=== PATIENT | female | born 1955 | race Caucasian/White ===

== ENCOUNTER → 2020-06-04 | Outpatient (CLI) | payer MEDICARE, MEDICAID ==
[~2020-06-04] MED LIST: AMIT25TA9 PO; ASP81CT; ASP81TEC; ASP81TEC PO; AZTH250C PO; BUTA-234 PO; CHOL200018 PO; CYCL5TAB PO; DPH25C PO; ERGO400C PO; ESTR1PAT28 TD; ESTR42.52 VG; FAMO20TA5 PO; FLC100T1 PO; HDR2T PO; HYDR1TAB PO; IBP600T1 PO; LOVA10TA PO; MECL12.579 PO; METR500T PO; NAPR-243 PO; NAPROXEN; NITR100C3 PO; OMG1KC; PERCOCET PO; PRD20T PO; PRM25T PO; TETR250C3 PO; TOLT2CAP PO; TOPI100T; TRL300; TRL300 PO
--- NOTE | 2020-06-04 16:00 | Diagnostic Imaging Report ---
INDICATION: Postmenopausal state. COMPARISON: January 20, 2013. FINDINGS: AP Spine L1-L4: [BMD (g/cm2): 1.136] [T-Score: -0.5] [Z-Score: -0.1] [BMD Previous: 1.183] [BMD % Change: -4.0] LT Hip Neck: [BMD (g/cm2): 0.891] [T-Score: -1.1] [Z-Score: -0.3] LT Hip Total: [BMD (g/cm2):0.998] [T-Score:-0.1] [Z-Score: 0.3] [BMD Previous: 0.98] [BMD % Change: 5.3] RT Hip Neck: [BMD (g/cm2):0.888] [T-Score:-1.1] [Z-Score:-0.4] RT Hip Total: [BMD (g/cm2):1.040] [T-score:0.3] [Z-Score:0.6] [BMD Previous:0.918] [BMD % Change:13.3] *Indicates significant change from prior examination based on 95% confidence level. World Health Organization criteria for BMD interpretation classify patients as Normal (T-score at or above -1.0), Osteopenic (T-score between -1.0 and -2.5) or Osteoporotic (T-score at or below -2.5). LIMITATIONS AND MODIFICATION: None. FRACTURE RISK (FRAX SCORE): The ten year probability of (%): Major Osteoporotic Fracture: [12] Hip Fracture: [1.5] IMPRESSION: 1. Osteopenia (Low bone mass). 2. No significant change in bone mineral density since prior examination. 3. See below National Osteoporosis Foundation guidelines on when to potentially initiate pharmacologic therapy. Based on the National Osteoporosis Foundation Guidelines, pharmacologic treatment should be initiated in any of the following, unless clinical conditions suggest otherwise: * Any patient with prior fragility fracture of the hip or vertebrae. A spine fracture indicates 5X risk for subsequent spine fracture and 2X risk for subsequent hip fracture. * Osteoporosis (T-score <-2.5). * Postmenopausal women and men age 50 and older with low bone mass/osteopenia (T-score between -1.0 and -2.5) by DXA and 10-year major osteoporotic fracture greater than 20% or a 10-year probability of hip fracture greater than 3%. These fracture risks are supplied above in the FRAX score, if applicable. * Clinician judgement and/or patient preferences may indicate treatment for people with 10-year fracture probabilities above or below these levels. Dictated by: Dictated on workstation # [id number]
== END ==
LOC: RAD 14:15
PROVIDERS: ATTEND Nurse Practitioner Family
DX: Z13.820 Encounter for screening for osteoporosis (principal); M85.80 Other specified disorders of bone density and structure, unspecified site; Z78.0 Asymptomatic menopausal state
CPT/HCPCS: 77080

== ENCOUNTER → 2020-08-23 | Outpatient (CLI) | payer MEDICARE, MEDICAID ==
--- NOTE | 2020-08-23 16:30 | Diagnostic Imaging Report ---
EXAMINATION: MRI RT LOWER EXT JOINT W/O. TECHNIQUE: Multiplanar, multisequence MR imaging of the right knee was performed without contrast. COMPARISON: None available. INDICATION: Right knee pain. FINDINGS: MENISCI Medial meniscus: Complex tear in the posterior horn of the medial meniscus predominantly involves its free edge, but likely has an unstable margin. There is also some free edge tearing within the body of the medial meniscus. Lateral meniscus: Intact. LIGAMENTS ACL: Intact. PCL: Intact. MCL: Intact. LCL: The lateral collateral ligamentous complex is intact. EXTENSOR MECHANISM The extensor mechanism is intact. CARTILAGE Medial compartment: Full-thickness articular cartilage loss in the posterior nonweightbearing aspect of the medial femoral condyle measuring approximately 1.5 x 0.9 cm. Lateral compartment: The lateral compartment articular cartilage is preserved without high-grade chondromalacia. Patellofemoral compartment: Full-thickness articular cartilage loss at the patellar apex. BONE No fracture, stress fracture or osteonecrosis. SOFT TISSUE Small knee joint effusion. No Farr's cyst. IMPRESSION: 1. Complex tearing involving the body and posterior horn of the medial meniscus likely has unstable free edge margin. 2. There are 2 small regions of full-thickness articular cartilage loss, one in the posterior nonweightbearing aspect of the medial femoral condyle, the other at the patellar apex. Remainder of the articular cartilage throughout the knee is thinned but otherwise intact. Dictated by: Dictated on workstation # [id number]
== END ==
LOC: RAD 14:45
PROVIDERS: ATTEND Nurse Practitioner
DX: S83.231A Complex tear of medial meniscus, current injury, right knee, initial encounter (principal); X58.XXXA Exposure to other specified factors, initial encounter
CPT/HCPCS: 73721

== ENCOUNTER 2021-07-30 05:37 | Outpatient (CLI) | payer MEDICARE, MEDICAID ==
[~2021-07-30] VITALS: Ht 167.6 cm; Wt 116.6 kg
[2021-07-30] MEDS ORDERED: CALC-308 PO (11:20)
[2021-07-30] MEDS ORDERED: ZIPR60CA18 PO (11:20)
[2021-07-30] MEDS ORDERED: PANT40TA52 PO (11:20)
[2021-07-30] MEDS ORDERED: ASPI-999 PO (11:20)
[2021-07-30] MEDS ORDERED: ASCO500C17 PO (11:20)
[2021-07-30] MEDS ORDERED: CHOL10007 PO (11:20)
[2021-07-30] MEDS ORDERED: METF-478 PO (11:20)
== END 2021-07-30 11:33 | disposition home or self-care (01) ==
LOC: PREOP 05:37
PROVIDERS: ATTEND Surgery
DX: Z01.818 Encounter for other preprocedural examination (principal)

== ENCOUNTER → 2021-08-04 | Outpatient (CLI) | payer MEDICARE, MEDICAID ==
[~2021-08-04] MED LIST changes: +ASCO500C17 PO; +ASPI-999 PO; +CALC-308 PO; +CHOL10007 PO; +METF-478 PO; +PANT40TA52 PO; +ZIPR60CA18 PO
== END ==
LOC: CARD 13:30
PROVIDERS: ATTEND Internal Medicine Cardiovascular Disease
DX: R94.31 Abnormal electrocardiogram [ECG] [EKG] (principal)
CPT/HCPCS: 93306

== ENCOUNTER 2021-08-06 10:33 | Day surgery (SDC) | payer MEDICARE, MEDICAID ==
[~2021-08-06] VITALS: Ht 167.6 cm; Wt 116.6 kg
[2021-08-06] MEDS ORDERED: LACTATED RINGERS 1,000 ML IV STA (10:38)
[2021-08-06] MEDS ORDERED: LIDOCAINE JELLY 2% 6 ML SYRINGE MM PRN (10:45)
[2021-08-06 11:03] VITALS: BP 123/75
--- NOTE | 2021-08-06 11:18 | Progress Note-Pre Operative ---
Pre-Operative Progress Note H&P Reviewed The H&P was reviewed, patient examined and no changes noted. Date Seen by Provider: August 06, 2021 Time Seen by Provider: 11:00 Date H&P Reviewed: August 06, 2021 Time H&P Reviewed: 11:00 Pre-Operative Diagnosis: hx colon polyp, FH FAYE PEREZ MD August 06, 2021 11:18
--- NOTE | 2021-08-06 11:19 | Discharge Inst-Surgical ---
D/C Lap Instructions-ANA Follow Up Activity as tolerated High Fiber Diet 25g or more per day Avoid Alcohol, Caffeine, Spicy Bicknell and Acid foods. Drink 64 fluid oz or more of fluids per day. Symptoms to Report: Fever over 101 degree F, Nausea/Vomiting If any problems/questions: Contact your physician or go to Emergency Room FAYE PEREZ MD August 06, 2021 11:19
[2021-08-06] MEDS ORDERED: ONDANSETRON 4 MG (ZOFRAN) ORAL DISSOLVE TAB PO PRN (11:30)
[2021-08-06] MEDS ORDERED: ONDANSETRON 4 MG/2 ML (SDV) Z0FRAN IVP PRN (11:30)
[2021-08-06] MEDS ORDERED: PROPOFOL INJECTION 50 ML IV ONE (12:19)
[2021-08-06 12:50] VITALS: BP 138/63
[2021-08-06 12:55] VITALS: BP 126/68
--- NOTE | 2021-08-06 12:57 | Anesthesia-General Post-Op ---
MAC Patient Condition Mental Status/LOC: Same as Preop Cardiovascular: Satisfactory Nausea/Vomiting: Absent Respiratory: Satisfactory Pain: Controlled Complications: Absent Post Op Complications Complications None Follow Up Care/Instructions Patient Instructions None needed. Anesthesiology Discharge Order Discharge Order Patient is doing well, no complaints, stable vital signs, no apparent adverse anesthesia problems. No complications reported per nursing. BJ NICKERSON CRNA August 06, 2021 12:57
--- NOTE | 2021-08-06 13:03 | Progress Note-Post Operative ---
Post-Operative Progess Note Surgeon (s)/Manufacturing Automation Engineer (s) Surgeon FAYE PEREZ MD Manufacturing Automation Engineer: none Pre-Operative Diagnosis hx colon polyp, FH Post-Operative Diagnosis mild chronic stage 2 ext and int hemorrhoids, mild sigmoid diverticulosis. Procedure & Operative Findings Date of Procedure 08/06/21 Procedure Performed/Findings colonoscopy Anesthesia Type mac Estimated Blood Loss Estimated blood loss (mL): minimal Specimens/Packing Specimens Removed none FAYE PEREZ MD August 06, 2021 13:03
[2021-08-06 13:25] VITALS: BP 127/91
[2021-08-06 14:27] VITALS: BP 127/91
--- NOTE | 2021-08-06 20:07 | OPERATIVE REPORT ---
DATE OF SERVICE: 08/06/2021 ATTENDING CARPENTER: [facility]. PREOPERATIVE DIAGNOSIS: History of colon polyp with first-degree family history of colon cancer. POSTOPERATIVE DIAGNOSES: Mild chronic stage II external and internal hemorrhoids, mild sigmoid diverticulosis. PROCEDURE: Colonoscopy. SURGEON: Faye Perez MD. ANESTHESIA: Monitored anesthesia care. ESTIMATED BLOOD LOSS: Minimal. FINDINGS: Mild chronic stage II external and internal hemorrhoids, mild sigmoid diverticulosis. DISPOSITION: The patient tolerated the procedure well. INDICATIONS: The patient is a 66-year-old female referred over to us for a screening colonoscopy. Her last colonoscopy was approximately 4 years ago where she was found to have polyps, which were found to be benign. She also does have a family history of colon cancer with her mother having the disease. She does not report any red blood per rectum nor any dark tarry stools; however, does have some issues with constipation. She also reports that she did have a history of colitis in the past as well. DESCRIPTION OF PROCEDURE: The patient was brought to the endoscopy suite, laid in the left lateral decubitus position. After adequate IV pain and sedative medications and monitored anesthesia care, a digital rectal examination was performed. Mild chronic stage II external and internal hemorrhoids were identified, which were not actively edematous nor inflamed and no bleeding. Normal sphincter tone was felt and there were no palpable masses. The endoscope was then intubated to the anus and rectum gently insufflated. The endoscope was then advanced through the valves of Lubin of the rectum with no polyps or any neoplasms identified. Through the sigmoid colon, a mild sigmoid diverticulosis was identified. The endoscope was then advanced to the remainder of the descending, transverse and ascending colon to the cecum, which were normal. There were no polyps or any neoplasms identified throughout the colon or rectum. The endoscope was then slowly withdrawn while taking a second look and suctioning of residual air with no additional findings. The patient tolerated the procedure well. We will recommend continued medical management with a high-fiber diet with a fiber supplement, which should equal or exceed 25 grams daily to promote soft stools on a daily basis. If she is asymptomatic, she does not need another colonoscopy for another 5 years. Job ID: [id number] DocumentID: [id number] Dictated Date: 08/06/2021 12:51:29 Manager Education Date: 08/06/2021 20:06:50 Dictated By: FAYE PEREZ MD
== END 2021-08-06 13:45 | disposition home or self-care (01) ==
LOC: ENDO 10:33
PROVIDERS: ATTEND Surgery
DX: Z12.11 Encounter for screening for malignant neoplasm of colon (principal); K57.30 Diverticulosis of large intestine without perforation or abscess without bleeding; K64.1 Second degree hemorrhoids; K64.4 Residual hemorrhoidal skin tags; E11.9 Type 2 diabetes mellitus without complications; E66.9 Obesity, unspecified; Z68.41 Body mass index [BMI] 40.0-44.9, adult; G47.33 Obstructive sleep apnea (adult) (pediatric); Z80.0 Family history of malignant neoplasm of digestive organs; Z86.010 Personal history of colon polyps; Z87.19 Personal history of other diseases of the digestive system; Z79.82 Long term (current) use of aspirin; Z79.84 Long term (current) use of oral hypoglycemic drugs; Z87.891 Personal history of nicotine dependence
CPT/HCPCS: 82947; G0105

== ENCOUNTER → 2021-08-14 | Outpatient (CLI) | payer MEDICARE, MEDICAID ==
[~2021-08-14] MED LIST changes: +CATHETER FLUSH 10 ML SYR IVP PRN; +REGADENOSON 0.4 MG/5 ML SYR (LEXISCAN) IV ONE
[2021-08-14 13:05] VITALS: BP 123/72
--- NOTE | 2021-08-14 15:35 | NUCLEAR STRESS TEST ---
REGADENOSON NUCLEAR STRESS Date of procedure: 08/14/2021. Primary care provider: Deanna Mantilla APRN Admitting physician: Jamie Díaz Jr., MD. INDICATION: Abnormal electrocardiogram. BASELINE ELECTROCARDIOGRAM: Sinus rhythm with low voltage in the precordial leads and poor R wave progression. STRESS TEST PROCEDURE: The patient was administered 0.4 mg of intravenous Regadenoson. The resting heart rate was 69 bpm and the peak heart rate was 108 bpm. The resting blood pressure was 123/72 mmHg and the minimum blood pressure was 123/72 mmHg. This represents a normal heart rate and a blunted blood p ressure response to Regadenoson. The test was stopped due to the protocol. There was no chest discomfort during the test. There were no arrhythmias during the test. There were no significant stress induced electrocardiogram changes. NUCLEAR PROCEDURE: The patient was administered 11 mCi of intravenous technetium 99m Tetrofosmin at rest for the rest images. The patient was subsequently administered 30.6 mCi of intravenous technetium 99m Tetrofosmin at peak stress for the stress images. Following an appropriate wait after each injection, imaging was obtained. The images were subsequently processed and reformatted in the usual views. Gated imaging was obtained. The image quality was adequate with a mild degree of gastrointestinal attenuation artifact. CT attenuation correction was used as a adjunct to standard imaging. Both the corrected and uncorrected images were reviewed for interpretation. NUCLEAR RESULTS: There was a small, mild intensity, reversible apical defect with a small amount of inducible ischemia with a summed stress score of 6 and a summed difference score of 5. There was normal left ventricular chamber size w ith an end-diastolic volume of 23 mL and an end-systolic volume of 10 mL. There was no evidence of transient ischemic dilatation. The TID ratio was 1.04. There was normal wall motion in all segments with a calculated ejection fraction of 55%. IMPRESSION: 1. Normal heart rate and a blunted blood pressure response to regadenoson. 2. There was no chest discomfort, arrhythmias, or electrocardiogram changes during the test. 3. There was a small, mild intensity, reversible apical defect with a small amount of inducible ischemia with a summed stress score of 6 and a summed difference score of 5. 4. There was normal wall motion in all segments with a calculated ejection fraction of 55%. 5. This is an abnormal result although represents an overall low risk for possible future coronary ischemic events. Certain portions of this document may have been dictated utilizing voice recognition technology. Inherent to this technology, typographical and grammatical errors may exist. As much as I am diligent to identify and correct these mistakes, some errors may remain in the document. JAMIE DÍAZ JR, MD August 14, 2021 15:34
== END ==
LOC: CARD 11:07
PROVIDERS: ATTEND Internal Medicine Cardiovascular Disease
DX: R94.31 Abnormal electrocardiogram [ECG] [EKG] (principal)
CPT/HCPCS: 78452; 93017; A9502

== ENCOUNTER 2022-05-11 02:24 | Emergency (ER) | payer MEDICARE, MEDICAID ==
[~2022-05-11] VITALS: Ht 168 cm; Wt 116.6 kg
[~2022-05-11 02:24] MED LIST changes: -CATHETER FLUSH 10 ML SYR IVP PRN; -REGADENOSON 0.4 MG/5 ML SYR (LEXISCAN) IV ONE
[2022-05-11 02:33] VITALS: BP 146/99
--- NOTE | 2022-05-11 02:55 | ED Cough/URI ---
General Chief Complaint: COVID19 Suspect/Confirmed Stated Complaint: COUGH,STUFFY NOSE,POSS COVID Nursing Triage Note: COUGH, RUNNY NOSE X2 DAYS. Source: patient, old records History of Present Illness Date Seen by Provider: May 11, 2022 Time Seen by Provider: 02:30 Initial Comments PT ARRIVES VIA POV FROM HOME PT STATES SHE BEGAN GETTING SICK ON Wednesday05/08/22 WITH: -STUFFY, RUNNY NOSE -NON-PRODUCTIVE COUGH -SLIGHT SHORTNESS OF BREATH NO FEVER NO HEADACHE NO BODY ACHES NO GI SYMPTOMS--HAS BEEN EATING AND DRINKING NORMALLY NO SORE THROAT NO CHEST PAIN SHE HAD COVID IN FEBRUARY AND IS CONCERNED THAT SHE HAS IT AGAIN SHE WAS NOT HOSPITALIZED, AND DID NOT RECEIVE ANY TREATMENT OTHER THAN AN INHALER SHE DID USE HER INHALER ABOUT 6 HOURS AGO, WITH IMPROVEMENT IN SYMPTOMS. SHE HAS NOT TAKEN ANYTHING ELSE AT ALL FOR HER SYMPTOMS SYMPTOMS ARE NO DIFFERENT TONIGHT SHE HAS NOT SOUGHT CARE UNTIL TONIGHT SHE HAS HAD COVID VACCINE X 3, AND FLU VACCINE FOR THIS SEASON NO KNOWN SICK CONTACTS SHE DENIES ANY HISTORY OF RESPIRATORY PROBLEMS OTHERWISE SHE DENIES ASTHMA, EMPHYSEMA, COPD, BRONCHITIS OR PNEUMONIA SHE STATES SHE HAS HTN, DIABETES, "SOME MILD BLOCKAGES" IN HER HEART--NO INTERVENTION, AND BIPOLAR SHE SMOKED 1 PPD X 39 YEARS--QUIT 2013, DENIES ALCOHOL OR DRUG USE. PCP: [facility] Allergies and Home Medications Allergies Coded Allergies: celecoxib (Unverified Allergy, Mild, 07/06/09) metronidazole (Verified Allergy, Mild, 02/21/13) morphine (Unverified Allergy, Mild, 07/06/09) Cephalosporins (Verified Allergy, Unknown, 10/15/06) Macrolide Antibiotics (Verified Allergy, Unknown, 10/15/06) Penicillins (Verified Allergy, Unknown, 10/15/06) Quinolones (Verified Allergy, Unknown, 10/15/06) Sulfa (Sulfonamide Antibiotics) (Verified Allergy, Unknown, 10/15/06) adhesive tape (Verified Allergy, Unknown, 07/30/21) sumatriptan (Verified Allergy, Unknown, 07/30/21) vancomycin (Verified Allergy, Unknown, 10/15/06) amitriptyline (Verified Adverse Reaction, Mild, reported as aphasia, 10/17/11) Patient Home Medication List Home Medication List Reviewed: Yes Albuterol Sulfate (Ventolin Hfa) 90 Mcg Hfa.aer.ad, 2 PUFF IH Q4H Prescribed by: JAYLYN FISHER on 05/11/22310 Ascorbic Acid (Vitamin C) 500 Mg Capsule, 500 MG PO DAILY, (Reported) Entered as Reported by: MAC MÉNDEZ on 07/30/211119 Aspirin (Aspirin) 81 Mg Tab.chew, 81 MG PO DAILY, (Reported) Entered as Reported by: MAC MÉNDEZ on 07/30/211119 Benzonatate (Tessalon Perles) 100 Mg Capsule, 200 MG PO TID Prescribed by: JAYLYN FISHER on 05/11/22310 Calcium Carbonate (Calcium) 500 Mg Calcium (1250 Mg) Tab.chew, 500 MG PO DAILY, (Reported) Entered as Reported by: MAC MÉNDEZ on 07/30/211119 Cholecalciferol (Vitamin D3) (Vitamin D3) 25 Mcg (1000 Unit) Capsule, 25 MCG PO DAILY, (Reported) Entered as Reported by: MAC MÉNDEZ on 07/30/211119 Doxycycline Hyclate (Doxycycline Hyclate) 100 Mg Tablet, 100 MG PO BID Prescribed by: JAYLYN FISHER on 05/11/22310 Metformin HCl (Metformin HCl ER) 500 Mg Tab.er.24, 500 MG PO 1700, (Reported) Entered as Reported by: MAC MÉNDEZ on 07/30/211119 Pantoprazole Sodium (Pantoprazole Sodium) 40 Mg Tablet.dr, 40 MG PO DAILY, (Reported) Entered as Reported by: MAC MÉNDEZ on 07/30/211119 Promethazine/Dextromethorphan (Promethazine-Dm Syrup) 6.25 Mg-15 Mg/5 Ml Syrup, 5 ML PO Q4H Prescribed by: JAYLYN FISHER on 05/11/22310 Ziprasidone HCl (Ziprasidone HCl) 60 Mg Capsule, 60 MG PO BID, (Reported) Entered as Reported by: MAC MÉNDEZ on 07/30/211119 Review of Systems Review of Systems Constitutional: no symptoms reported; No fever EENTM: see HPI, nose congestion; No ear pain, No throat pain Respiratory: see HPI, cough, short of breath; No wheezing Cardiovascular: no symptoms reported; No chest pain Gastrointestinal: no symptoms reported; No abdominal pain, No diarrhea, No loss of appetite, No nausea, No vomiting Genitourinary: no symptoms reported Musculoskeletal: no symptoms reported Skin: no symptoms reported Psychiatric/Neurological: No Symptoms Reported; Denies Headache Hematologic/Lymphatic: No Symptoms Reported Immunological/Allergic: no symptoms reported Past Kjqklgj-Yqlsdi-Acztrx Hx Patient Social History Tobacco Use?: Yes Tobacco type used: Cigarettes Smoking Status: Former Smoker Substance use?: No Alcohol Use?: No Immunizations Up To Date First/Initial COVID19 Vaccinat: X3 Second COVID19 Vaccination Darnell: yes Third COVID19 Vaccination Date: yes Seasonal Allergies Seasonal Allergies: No Past Medical History Surgeries: Yes (bladder SLING, bilat RCR, bilat knee scopes) Bladder Surgery, Hysterectomy, Orthopedic Respiratory: Yes (CPAP) Sleep Apnea Currently Using CPAP: Yes Cardiac: Yes Coronary Artery Disease, Hypertension Neurological: Yes ("HAD A MIGRAINE STROKE" YEARS AGO PER PT) Headaches /Migraines, Stroke Reproductive Disorders: Yes Female Reproductive Disorders: Menstrual 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 Genitourinary: No Gastrointestinal: Yes Gastroesophageal Reflux, Hemorrhoids, Hepatitis, Polyps Musculoskeletal: Yes (MULTIPLE ORTHOPEDIC SURGERIES) Endocrine: Yes Diabetes, Non-Insulin dep HEENT: No Cancer: No Psychosocial: Yes Anxiety, Bipolar, Depression Integumentary: No Blood Disorders: No Family Medical History No Pertinent Family Hx SOCIAL HISTORY: -SMOKED 1 PPD X 39 YEARS, QUIT 2013 -DENIES ETOH USE -DENIES DRUG USE PAST SURGICAL HISTORY: -BILATERAL ROTATOR CUFF REPAIR -BILATERAL KNEE ARTHROSCOPIES -LANCE 2005 -TRANSVAGINAL HYSTERECTOMY AND BILATERAL SALPINGO-OOPHORECTOMY -BLADDER SLING COLONOSCOPY 08/06/[address] PEREZ: POSTOPERATIVE DIAGNOSES: Mild chronic stage II external and internal hemorrhoids, mild sigmoid diverticulosis. Physical Exam Vital Signs - First Documented 05/11/22 02:33 Temp 37.1 Pulse 107 Resp 16 B/P (MAP) 146/99 (115) Pulse Ox 95 O2 Delivery Room Air Capillary Refill : Less Than 3 Seconds Height: 5'6" Weight: 170lbs. oz. 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 tested, no motor/sensory deficits, alert, normal mood/affect, oriented x 3 Skin: normal color, warm/dry Progress/Results/Core Measures Suspected Sepsis SIRS Temperature: Pulse: 107 Respiratory Rate: 16 Blood Pressure 146 /99 Mean: 115 Results/Orders Lab Results Laboratory Tests Test 05/11/22 02:36 Range/Units Influenza Type A (RT-PCR) Not Detected Not Detecte Influenza Type B (RT-PCR) Not Detected Not Detecte SARS-CoV-2 RNA (RT-PCR) Not Detected Not Detecte My Orders Orders - JAYLYN FISHER DO Covid 19 Inhouse Test (05/11/22 02:31) Influenza A And B By Pcr (05/11/22 02:31) Isolation Central Supply Req (05/11/22 02:31) Vital Signs/I&O 05/11/22 02:33 Temp 37.1 Pulse 107 Resp 16 B/P (MAP) 146/99 (115) Pulse Ox 95 O2 Delivery Room Air Capillary Refill : Less Than 3 Seconds Blood Pressure Mean: 115 Progress Note : Progress Note PLACED IN ISOLATION ROOM FULL PPE WORN COVID AND FLU TESTING DONE VITALS NORMAL NO COUGH NO DYSPNEA NO HYPOXIA NO FEVER. REVIEWED PRIOR RECORDS INCLUDING ER VISITS, ADMITS, H&P'S, TESTS/PROCEDURES, CONSULTS, AND DISCHARGE SUMMARIES DISCUSSED TEST RESULTS, ANTICIPATED COURSE, SYMPTOMATIC TREATMENT, MEDICATIONS, NEED FOR FOLLOW UP AND RETURN PRECAUTIONS SPACER SENT HOME WITH PATIENT AND WAS INSTRUCTED ON USE. REVIEWED HER ALLERGY LIST, SHE STATES SHE CAN TAKE DOXYCYCLINE. SHE CANNOT TOLERATE STEROIDS Departure Impression Primary Impression: Upper respiratory infection Disposition: HOME, SELF-CARE Condition: Stable Departure-Patient Inst. Decision time for Depature: 03:02 Referrals: [facility] (PCP) Primary Care Physician FABI RESTREPO APRN (Family) Primary Care Physician Patient Instructions: Upper Respiratory Infection ED Add. Discharge Instructions: LOTS OF CLEAR LIQUIDS TYLENOL AND MOTRIN NEEDED FOR PAIN OR FEVER CONTINUE YOUR INHALER EVERY 4 HOURS NEEDED FOLLOW UP WITH YOUR DR IN 3-4 DAYS IF NO BETTER, RETURN TO ER IF WORSE. All discharge instructions reviewed with patient and/or family. Voiced understanding. Scripts Promethazine/Dextromethorphan (Promethazine-Dm Syrup) 6.25 Mg-15 Mg/5 Ml Syrup 5 ML PO Q4H for Cough, #200 ML Prov: JAYLYN FISHER DO 05/11/22 Benzonatate (TESSALON PERLES) 100 Mg Capsule 200 MG PO TID, #30 CAP Prov: JAYLYN FISHER DO 05/11/22 Albuterol Sulfate (Ventolin Hfa) 90 Mcg Hfa.aer.ad 2 PUFF IH Q4H, #1 EA 1 PUFF = 90 MCG Prov: JAYLYN FISHER DO 05/11/22 Doxycycline Hyclate (Doxycycline Hyclate) 100 Mg Tablet 100 MG PO BID, #20 TAB 0 Refills Prov: JAYLYN FISHER DO 05/11/22 JAYLYN FISHER DO May 11, 2022 02:55
[2022-05-11] MEDS ORDERED: DOXY100T2 PO (03:11)
[2022-05-11] MEDS ORDERED: ALBU8.5H6 IH (03:11)
[2022-05-11] MEDS ORDERED: BENZ100C18 PO (03:11)
[2022-05-11] MEDS ORDERED: D-ME473S11 PO (03:11)
== END 2022-05-11 03:12 | disposition home or self-care (01) ==
LOC: EDUNIT# 02:24 → ER 02:28
DX: J06.9 Acute upper respiratory infection, unspecified (principal); Z86.16 Personal history of COVID-19; Z87.891 Personal history of nicotine dependence; Z88.2 Allergy status to sulfonamides; Z88.1 Allergy status to other antibiotic agents; Z88.0 Allergy status to penicillin; Z20.822 Contact with and (suspected) exposure to COVID-19
CPT/HCPCS: 87636; 99283

== ENCOUNTER 2022-08-30 03:50 | Emergency (ER) | payer MEDICARE, MEDICAID ==
[~2022-08-30] VITALS: Ht 167.7 cm; Wt 117.9 kg
[~2022-08-30 03:50] MED LIST changes: +ALBU8.5H6 IH; +BENZ100C18 PO; +DOXY100T2 PO; +PROM473S15 PO
[2022-08-30] MEDS ORDERED: CLIN150C20 PO (04:30)
--- NOTE | 2022-08-30 04:30 | ED EENT ---
History of Present Illness General Chief Complaint: Ear Problems Stated Complaint: RT EAR PAIN Nursing Triage Note: PT AMBULATES TO DEPT WITH STEADY GAIT; PT A&OX4; PT C/O R SIDED EAR PAIN THAT BEGAN APPROX 2 DAYS AGO; PT REPORTS THAT PAIN HAS BECOME GRADUALLY WORSE AND THAT YESTERDAY STARTING AT APPROX 1300 HRS PT BECAME SIGNIFICANTLY WORSE AND SHE HAS BEEN UNABLE TO SLEEP BECAUSE OF DISCOMFORT; PT SEES ENT IN [place] FOR ROUTINE EAR CLEANING BUT DOES NOT HAVE AN APPT FOR APPROX 1-2 MONTHS Source: patient Exam Limitations: no limitations History of Present Illness Date Seen by Provider: Aug 30, 2022 Time Seen by Provider: 04:14 Initial Comments 67-year-old female presents for right ear pain. Symptoms present for 2 days. She has not tried anything for her symptoms. She has had some drainage from the ear. She has been using rinses with hydrogen peroxide. No fevers or chills. All other systems reviewed and negative except documented per HPI. Voice recognition software was used to help create this chart Allergies and Home Medications Allergies Coded Allergies: celecoxib (Unverified Allergy, Mild, 07/06/09) metronidazole (Verified Allergy, Mild, 02/21/13) morphine (Unverified Allergy, Mild, 07/06/09) Cephalosporins (Verified Allergy, Unknown, 10/15/06) Macrolide Antibiotics (Verified Allergy, Unknown, 10/15/06) Penicillins (Verified Allergy, Unknown, 10/15/06) Quinolones (Verified Allergy, Unknown, 10/15/06) Sulfa (Sulfonamide Antibiotics) (Verified Allergy, Unknown, 10/15/06) adhesive tape (Verified Allergy, Unknown, 07/30/21) sumatriptan (Verified Allergy, Unknown, 07/30/21) vancomycin (Verified Allergy, Unknown, 10/15/06) amitriptyline (Verified Adverse Reaction, Mild, reported as aphasia, 09/27 04/09) Patient Home Medication List Home Medication List Reviewed: Yes Albuterol Sulfate (Ventolin Hfa) 90 Mcg Hfa.aer.ad, 2 PUFF IH Q4H Prescribed by: JAYLYN FISHER on 05/11/22 0311 Ascorbic Acid (Vitamin C) 500 Mg Capsule, 500 MG PO DAILY, (Reported) Entered as Reported by: MAC MÉNDEZ on 07/30/21 1120 Aspirin (Aspirin) 81 Mg Tab.chew, 81 MG PO DAILY, (Reported) Entered as Reported by: MAC MÉNDEZ on 07/30/21 112 Benzonatate (Tessalon Perles) 100 Mg Capsule, 200 MG PO TID Prescribed by: JAYLYN FISHER on 05/11/22 031 Calcium Carbonate (Calcium) 500 Mg Calcium (1250 Mg) Tab.chew, 500 MG PO DAILY, (Reported) Entered as Reported by: MAC MÉNDEZ on 07/30/21 112 Cholecalciferol (Vitamin D3) (Vitamin D3) 25 Mcg (1000 Unit) Capsule, 25 MCG PO DAILY, (Reported) Entered as Reported by: MAC MÉNDEZ on 07/30/21 112 Clindamycin HCl (Clindamycin HCl) 150 Mg Capsule, 300 MG PO TID Prescribed by: MANSOOR LEMON MD on 08/30/22 0430 Doxycycline Hyclate (Doxycycline Hyclate) 100 Mg Tablet, 100 MG PO BID Prescribed by: JAYLYN FISHER on 05/11/22310 Metformin HCl (Metformin HCl ER) 500 Mg Tab.er.24, 500 MG PO 1700, (Reported) Entered as Reported by: MAC MÉNDEZ on 07/30/21 112 Pantoprazole Sodium (Pantoprazole Sodium) 40 Mg Tablet.dr, 40 MG PO DAILY, (Reported) Entered as Reported by: MAC MÉNDEZ on 07/30/21 112 Promethazine/Dextromethorphan (Promethazine-Dm Syrup) 6.25 Mg-15 Mg/5 Ml Syrup, 5 ML PO Q4H Prescribed by: JAYLYN FISHER on 05/11/22 031 Ziprasidone HCl (Ziprasidone HCl) 60 Mg Capsule, 60 MG PO BID, (Reported) Entered as Reported by: MAC MÉNDEZ on 07/30/21 112 Review of Systems Review of Systems Constitutional: see HPI Past Cljqsvd-Fmpmxn-Tiogti Hx Patient Social History Tobacco Use?: No Use of E-Cig and/or Vaping dev: No Substance use?: No Alcohol Use?: No Pt feels they are or have been: No Immunizations Up To Date Influenza Vaccine Up-to-Date: Yes; Up-to-Date First/Initial COVID19 Vaccinat: 2020 Second COVID19 Vaccination Darnell: 2020 Third COVID19 Vaccination Date: yes Seasonal Allergies Seasonal Allergies: No Past Medical History Surgery/Hospitalization HX: PSYCH Surgeries: Yes (bladder SLING, bilat RCR, bilat knee scopes) Bladder Surgery, Hysterectomy, Orthopedic Respiratory: Yes (CPAP) Sleep Apnea Currently Using CPAP: Yes Cardiac: Yes Coronary Artery Disease, Hypertension Neurological: Yes ("HAD A MIGRAINE STROKE" YEARS AGO PER PT) Headaches /Migraines, Stroke Reproductive Disorders: Yes Female Reproductive Disorders: 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 Genitourinary: No Gastrointestinal: Yes Gastroesophageal Reflux, Hemorrhoids, Hepatitis, Polyps Musculoskeletal: Yes (MULTIPLE ORTHOPEDIC SURGERIES) Endocrine: Yes Diabetes, Non-Insulin dep HEENT: No Cancer: No Psychosocial: Yes Anxiety, Bipolar, Depression Integumentary: No Blood Disorders: No Family Medical History No Pertinent Family Hx SOCIAL HISTORY: -SMOKED 1 PPD X 39 YEARS, QUIT 2013 -DENIES ETOH USE -DENIES DRUG USE PAST SURGICAL HISTORY: -BILATERAL ROTATOR CUFF REPAIR -BILATERAL KNEE ARTHROSCOPIES -LANEC 2005 -TRANSVAGINAL HYSTERECTOMY AND BILATERAL SALPINGO-OOPHORECTOMY -BLADDER SLING COLONOSCOPY 08/06/[address] PEREZ: POSTOPERATIVE DIAGNOSES: Mild chronic stage II external and internal hemorrhoids, mild sigmoid diverticulosis. Physical Exam Vital Signs Vital Signs - First Documented 08/30/22 04:00 Temp 36.7 Pulse 78 Resp 16 B/P (MAP) 108/64 (79) Pulse Ox 96 O2 Delivery Room Air Height, Weight, BMI Height: 5'6" Weight: 170lbs. oz. 77.674931ix; 41.00 BMI Method:Stated General Appearance: WD/WN, no apparent distress Eyes: bilateral eye normal inspection, bilateral eye PERRL, bilateral eye EOMI Ears: right ear other (Right TM is erythematous, bulging.); left ear auricle normal, left ear canal normal, left ear TM normal Nose: normal inspection Neck: non-tender, supple, normal inspection Cardiovascular: regular rate, rhythm, no murmur Respiratory: chest non-tender, lungs clear, normal breath sounds, no respiratory distress, no accessory muscle use Gastrointestinal: normal bowel sounds, non tender, soft, no organomegaly Neurologic/Psychiatric: alert, normal mood/affect, oriented x 3 Skin: normal color, warm/dry Progress/Results/Core Measures Results/Orders Vital Signs/I&O 08/30/22 08/30/22 04:00 04:38 Temp 36.7 Pulse 78 76 Resp 16 16 B/P (MAP) 108/64 (79) 103/62 Pulse Ox 96 96 O2 Delivery Room Air Room Air Blood Pressure Mean: 79 Departure Communication (Admissions) Patient is hemodynamically stable. She does appear to have right otitis media. Pharmacy will be just few hours so we prescribed antibiotics there. Antibiotic choice was difficult due to her myriad of allergies. Ultimately decided on clindamycin. Impression Primary Impression: Otitis media Qualified Codes: H66.001 - Acute suppurative otitis media without spontaneous rupture of ear drum, right ear Disposition: HOME, SELF-CARE Condition: Stable Departure-Patient Inst. Referrals: GARCIA LIVINGSTON APRN (PCP/Family) Primary Care Physician Patient Instructions: Ear Infections (Otitis Media) in Adults (DC) Add. Discharge Instructions: Take the antibiotics as prescribed until they are gone. Use ibuprofen and Tylenol for pain. All discharge instructions reviewed with patient and/or family. Voiced understanding. Scripts Clindamycin HCl (Clindamycin HCl) 150 Mg Capsule 300 MG PO TID for 7 Days, #21 CAP Prov: MANSOOR LEMON DO 08/30/22 MANSOOR LEMON DO Aug 30, 2022 04:30
[2022-08-30 04:38] VITALS: BP 103/62
== END 2022-08-30 04:38 | disposition home or self-care (01) ==
LOC: EDUNIT# 03:50 → ER 03:53
DX: H66.91 Otitis media, unspecified, right ear (principal); G47.30 Sleep apnea, unspecified; Z99.89 Dependence on other enabling machines and devices; Z87.891 Personal history of nicotine dependence; Z88.0 Allergy status to penicillin; Z88.2 Allergy status to sulfonamides; Z88.1 Allergy status to other antibiotic agents
CPT/HCPCS: 99282

== ENCOUNTER 2022-09-18 19:12 | Emergency (ER) | payer MEDICARE, MEDICAID ==
[~2022-09-18] VITALS: Ht 167.7 cm; Wt 100.0 kg
[~2022-09-18 19:12] MED LIST changes: +CLIN150C20 PO
--- NOTE | 2022-09-18 20:08 | ED General ---
General Chief Complaint: Skin/Wound Problems Stated Complaint: POSS INFECTION LEFT BIG TOE Nursing Triage Note: PT AMB TO TRIAGE W C/O POSS INFECTION OF LEFT GREAT TOE. REPORTS SHE SAW DR. DOUGHERTY A COUPLE MONTHS AGO WHO HAS BEEN TX TOE FOR FUNGAL INFECTION. PT REPORTS REDNESS IS WORSENING, DENIES PAIN. Source of Information: Patient Exam Limitations: No Limitations History of Present Illness Date Seen by Provider: Sep 18, 2022 Time Seen by Provider: 20:05 Allergies and Home Medications Allergies Coded Allergies: celecoxib (Unverified Allergy, Mild, 07/06/09) metronidazole (Verified Allergy, Mild, 02/21/13) morphine (Unverified Allergy, Mild, 07/06/09) Cephalosporins (Verified Allergy, Unknown, 10/15/06) Macrolide Antibiotics (Verified Allergy, Unknown, 10/15/06) Penicillins (Verified Allergy, Unknown, 10/15/06) Quinolones (Verified Allergy, Unknown, 10/15/06) Sulfa (Sulfonamide Antibiotics) (Verified Allergy, Unknown, 10/15/06) adhesive tape (Verified Allergy, Unknown, 07/30/21) sumatriptan (Verified Allergy, Unknown, 07/30/21) vancomycin (Verified Allergy, Unknown, 10/15/06) amitriptyline (Verified Adverse Reaction, Mild, reported as aphasia, 10/17/11) Patient Home Medication List Albuterol Sulfate (Ventolin Hfa) 90 Mcg Hfa.aer.ad, 2 PUFF IH Q4H Prescribed by: JAYLYN FISHER on 05/11/22 0311 Ascorbic Acid (Vitamin C) 500 Mg Capsule, 500 MG PO DAILY, (Reported) Entered as Reported by: MAC MÉNDEZ on 07/30/21 1120 Aspirin (Aspirin) 81 Mg Tab.chew, 81 MG PO DAILY, (Reported) Entered as Reported by: MAC MÉNDEZ on 07/30/21 1120 Benzonatate (Tessalon Perles) 100 Mg Capsule, 200 MG PO TID Prescribed by: JAYLYN FISHER on 05/11/22 031 Calcium Carbonate (Calcium) 500 Mg Calcium (1250 Mg) Tab.chew, 500 MG PO DAILY, (Reported) Entered as Reported by: MAC MÉNDEZ on 07/30/21 1120 Cholecalciferol (Vitamin D3) (Vitamin D3) 25 Mcg (1000 Unit) Capsule, 25 MCG PO DAILY, (Reported) Entered as Reported by: MAC MÉNDEZ on 07/30/21 112 Clindamycin HCl (Clindamycin HCl) 150 Mg Capsule, 300 MG PO TID Prescribed by: MANSOOR LEMON MD on 08/30/22 0430 Doxycycline Hyclate (Doxycycline Hyclate) 100 Mg Tablet, 100 MG PO BID Prescribed by: JAYLYN FISHER on 05/11/22 031 Metformin HCl (Metformin HCl ER) 500 Mg Tab.er.24, 500 MG PO 1700, (Reported) Entered as Reported by: MAC MÉNDEZ on 07/30/21 112 Pantoprazole Sodium (Pantoprazole Sodium) 40 Mg Tablet.dr, 40 MG PO DAILY, (Reported) Entered as Reported by: MAC MÉNDEZ on 07/30/21 112 Promethazine/Dextromethorphan (Promethazine-Dm Syrup) 6.25 Mg-15 Mg/5 Ml Syrup, 5 ML PO Q4H Prescribed by: JAYLYN FISHER on 05/11/22 031 Ziprasidone HCl (Ziprasidone HCl) 60 Mg Capsule, 60 MG PO BID, (Reported) Entered as Reported by: MAC MÉNDEZ on 07/30/211119 Past Cmujflu-Nmgdki-Wexnyk Hx Patient Social History Tobacco Use?: No Use of E-Cig and/or Vaping dev: No Substance use?: No Alcohol Use?: No Immunizations Up To Date First/Initial COVID19 Vaccinat: 2020 Second COVID19 Vaccination Darnell: 2020 Third COVID19 Vaccination Date: 2021 COVID19 Vaccine Auto Striper: MODERNA X3 Seasonal Allergies Seasonal Allergies: No Past Medical History Surgery/Hospitalization HX: PSYCH Surgeries: Yes (bladder SLING, bilat RCR, bilat knee scopes) Bladder Surgery, Hysterectomy, Orthopedic Respiratory: Yes (CPAP) Sleep Apnea Currently Using CPAP: Yes Cardiac: Yes Coronary Artery Disease, Hypertension Neurological: Yes ("HAD A MIGRAINE STROKE" YEARS AGO PER PT) Headaches /Migraines, Stroke Reproductive Disorders: Yes Female Reproductive Disorders: 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 Genitourinary: No Gastrointestinal: Yes Gastroesophageal Reflux, Hemorrhoids, Hepatitis, Polyps Musculoskeletal: Yes (MULTIPLE ORTHOPEDIC SURGERIES) Endocrine: Yes Diabetes, Non-Insulin dep HEENT: No Cancer: No Psychosocial: Yes Anxiety, Bipolar, Depression Integumentary: No Blood Disorders: No Family Medical History No Pertinent Family Hx SOCIAL HISTORY: -SMOKED 1 PPD X 39 YEARS, QUIT 2013 -DENIES ETOH USE -DENIES DRUG USE PAST SURGICAL HISTORY: -BILATERAL ROTATOR CUFF REPAIR -BILATERAL KNEE ARTHROSCOPIES -LANCE 2005 -TRANSVAGINAL HYSTERECTOMY AND BILATERAL SALPINGO-OOPHORECTOMY -BLADDER SLING COLONOSCOPY 08/06/[address] PEREZ: POSTOPERATIVE DIAGNOSES: Mild chronic stage II external and internal hemorrhoids, mild sigmoid diverticulosis. Physical Exam Vital Signs Vital Signs - First Documented 09/18/22 19:16 Temp 36.6 Pulse 99 Resp 18 B/P (MAP) 124/71 (88) Pulse Ox 95 O2 Delivery Room Air Capillary Refill : Less Than 3 Seconds Height, Weight, BMI Height: 5'6" Weight: 170lbs. oz. 77.239294iv; 35.00 BMI Method:Stated Progress/Results/Core Measures Suspected Sepsis SIRS Temperature: Pulse: 99 Respiratory Rate: 18 Blood Pressure 124 /71 Mean: 88 Results/Orders Vital Signs/I&O 09/18/22 19:16 Temp 36.6 Pulse 99 Resp 18 B/P (MAP) 124/71 (88) Pulse Ox 95 O2 Delivery Room Air Capillary Refill : Less Than 3 Seconds Blood Pressure Mean: 88 Departure Impression Primary Impression: Cellulitis of great toe of left foot Additional Impression: Onychomycosis Disposition: 01 HOME, SELF-CARE Condition: Stable Departure-Patient Inst. Decision time for Depature: 20:48 Referrals: GARCIA LIVINGSTON APRN (PCP/Family) Primary Care Physician Patient Instructions: Cellulitis (Skin Infection), Adult ED, Fungal nail infections Add. Discharge Instructions: You may continue using the topical treatment provided by Dr. Dougherty. Add Bactroban ointment and a thin layer twice a day from the tube supplied from the emergency room. Take your cefdinir (Omnicef) prescription as directed. Call Dr. Dougherty's office on Wednesday to schedule a follow-up for reexamination. Continue leaving your foot open to air as much as possible. Return to the ER if you have worsening symptoms despite following these instructions. All discharge instructions reviewed with patient and/or family. Voiced understanding. Scripts Cefdinir (Cefdinir) 300 Mg Capsule 300 MG PO BID, #14 CAP Prov: ИРИНА GARDNER MD 09/18/22 Copy Copies To 1: FARSHAD DOUGHERTY DPM Copies To 2: ESTHER ESTEVEZ MD, JOSHUA T MD Sep 18, 2022 20:08
[2022-09-18] MEDS ORDERED: MUPIROCIN 2% OINT 22 GM (BACTROBAN) TUBE TOP STA (20:47)
[2022-09-18] MEDS ORDERED: CEFD300C3 PO (20:52)
[2022-09-18] MEDS ORDERED: CEFDINIR 300 MG (OMNICEF) CAP PO ONE (21:00)
[2022-09-18 21:19] VITALS: BP 96/64
== END 2022-09-18 21:20 | disposition home or self-care (01) ==
LOC: EDUNIT# 19:12 → ER 19:14
DX: L03.032 Cellulitis of left toe (principal); B35.1 Tinea unguium; G47.30 Sleep apnea, unspecified; Z99.89 Dependence on other enabling machines and devices; Z87.891 Personal history of nicotine dependence; Z88.2 Allergy status to sulfonamides; Z88.0 Allergy status to penicillin; Z88.1 Allergy status to other antibiotic agents

== ENCOUNTER → 2023-01-14 | Outpatient (CLI) | payer MEDICARE, MEDICAID ==
[~2023-01-14] MED LIST changes: +CEFD300C3 PO; +EZET10TA49 PO; +GADOTERATE 0.5 MMOL/ML (CLARISCAN) 15 ML VIAL IV ONE; +GADOTERATE 0.5 MMOL/ML (CLARISCAN) 20 ML VIAL IV ONE
--- NOTE | 2023-01-14 12:38 | Diagnostic Imaging Report ---
PROCEDURE: MR imaging of the brain with and without contrast. TECHNIQUE: Multiplanar, multisequence MR imaging of the brain was performed with and without contrast. DATE: January 14, 2023. COMPARISON: CT head June 12, 2013. HISTORY: 67-year-old female, headache. FINDINGS: There is no restricted diffusion. There are no areas of abnormal intracranial susceptibility. The ventricles and CSF spaces are normal in size and configuration for patient age. There is proportional prominence of the ventricles and additional CSF spaces consistent with mild cerebral volume loss. There are findings of encephalomalacia in the right temporo-occipital region with adjacent gliosis. There are foci of T2 and FLAIR hyperintense signal in the periventricular and subcortical white matter which are nonspecific but most likely relate to mild findings of chronic small vessel ischemic disease. There is no identified abnormal extra-axial fluid collection. There is no evidence to suggest acute intracranial hemorrhage. There is no identified abnormal intracranial enhancement. The visualized portions of the paranasal sinuses, mastoid air cells, and middle ears are well-aerated. IMPRESSION: 1. No evidence of an acute infarct or other acute intracranial abnormality. 2. Mild cerebral volume loss with findings of encephalomalacia in the right temporo-occipital region. 3. Mild probable findings of chronic small vessel ischemic disease. 4. No evidence of metastatic disease to brain. Dictated by: Dictated on workstation # [id number]
== END ==
LOC: RAD 10:48
PROVIDERS: ATTEND Internal Medicine Hematology & Oncology
DX: G31.9 Degenerative disease of nervous system, unspecified (principal); G93.89 Other specified disorders of brain; C50.912 Malignant neoplasm of unspecified site of left female breast; Z79.899 Other long term (current) drug therapy
CPT/HCPCS: 70553

== ENCOUNTER 2023-01-19 05:35 | Outpatient (CLI) | payer MEDICARE, MEDICAID ==
[~2023-01-19] VITALS: Ht 167.7 cm; Wt 97.7 kg
[~2023-01-19 05:35] MED LIST changes: -EZET10TA49 PO; -GADOTERATE 0.5 MMOL/ML (CLARISCAN) 15 ML VIAL IV ONE; -GADOTERATE 0.5 MMOL/ML (CLARISCAN) 20 ML VIAL IV ONE
[2023-01-19] MEDS ORDERED: EZET10TA49 PO (09:48)
== END 2023-01-19 10:08 | disposition home or self-care (01) ==
LOC: PREOP 05:35
PROVIDERS: ATTEND Surgery
DX: Z01.818 Encounter for other preprocedural examination (principal)

== ENCOUNTER 2023-01-21 09:50 | Day surgery (SDC) | payer MEDICARE, MEDICAID ==
[2023-01-21] VITALS (7 sets, daily range): BP systolic 107–128; BP diastolic 59–85
[~2023-01-21] VITALS: Ht 167.7 cm; Wt 97.7 kg
[~2023-01-21 09:50] MED LIST changes: +EZET10TA49 PO
[2023-01-21] MEDS ORDERED: CLINDAMYCIN 600 MG/50 ML IVPB 50 ML IV ONE (10:15)
[2023-01-21] MEDS ORDERED: LACTATED RINGERS 1,000 ML 1,000 ML IV PRN (10:15)
[2023-01-21] MEDS ORDERED: LIDOCAINE 2% w/EPI 1:100,000 20 ML VIAL ONE (10:24)
[2023-01-21] MEDS ORDERED: 0.9% SODIUM CHLORIDE PF INJ 20 ML VIAL ONE (10:24)
[2023-01-21] MEDS ORDERED: HEParin (CENTRAL IV FLUSH) 500 UNIT/5 ML SYR ONE (10:24)
[2023-01-21] MEDS ORDERED: HYDROcodone/ACETAMINOPHEN 5 MG/325 MG TABLET PO ONE (10:30)
[2023-01-21] MEDS ORDERED: fentaNYL INJECTION 100 MCG/2 ML VIAL IVP PRN (10:30)
[2023-01-21] MEDS ORDERED: ACETAMINOPHEN 325 MG TABLET PO PRN (10:30)
[2023-01-21] MEDS ORDERED: ONDANSETRON INJECTION 4 MG/2 ML (SDV) IVP PRN (10:30)
--- NOTE | 2023-01-21 10:30 | Progress Note-Pre Operative ---
Pre-Operative Progress Note Date H&P Reviewed: Jan 21, 2023 Time H&P Reviewed: 10:25 History & Physical: H&P Reviewed, Patient Examed, No changes noted Pre-Operative Diagnosis: Left breast cancer ESTHER CLARK APRN Jan 21, 2023 10:30
[2023-01-21] MEDS ORDERED: ACHD5005 PO (10:32)
--- NOTE | 2023-01-21 10:32 | Discharge Inst-Surgical ---
D/C Lap Instructions-KIDO Reconcile Patient Problems Problems Reviewed?: Yes New, Converted, or Re-Newed RX: RX on Chart Follow Up Appt in 2 weeks Activity as tolerated No driving for 24 hours No driving while on pain medications Incentive Spirometry use every 2 hours while awake Regular Diet Symptoms to Report: Fever over 101 degree F, Nausea/Vomiting Infection Signs and Symptoms to report: Increased redness, Foul odor of wound, Increased drainage Bathing instructions: May shower Operative Area Clean/Dry; Keep incision clean/dry If any problems/questions: Contact your physician or go to Emergency Room ESTHER CLARK APRN Jan 21, 2023 10:32
[2023-01-21] MEDS ORDERED: 0.9% SODIUM CHLORIDE PF INJ 20 ML VIAL IV ONE (10:37)
[2023-01-21] MEDS ORDERED: HEParin (CENTRAL IV FLUSH) 500 UNIT/5 ML SYR IV ONE (10:39)
[2023-01-21] MEDS ORDERED: LIDOCAINE 2% w/EPI 1:100,000 20 ML VIAL INJ ONE (10:40)
--- NOTE | 2023-01-21 11:48 | Progress Note-Post Operative ---
Post-Operative Progess Note Surgeon (s)/Harvesting Manager (s) Surgeon FAYE PEREZ MD Harvesting Manager: oren lr PROSTHETIC TECHNICIAN Pre-Operative Diagnosis Left breast cancer Post-Operative Diagnosis same Procedure & Operative Findings Date of Procedure 01/21/23 Procedure Performed/Findings left subclavian groshong Anesthesia Type mac with local Estimated Blood Loss Estimated blood loss (mL): minimal Specimens/Packing Specimens Removed none FAYE PEREZ MD Jan 21, 2023 11:48
--- NOTE | 2023-01-21 12:05 | Anesthesia-General Post-Op ---
MAC Patient Condition Mental Status/LOC: Same as Preop Cardiovascular: Satisfactory Nausea/Vomiting: Absent Respiratory: Satisfactory Pain: Controlled Complications: Absent Post Op Complications Complications None Follow Up Care/Instructions Patient Instructions None needed. Anesthesiology Discharge Order Discharge Order Patient is doing well, no complaints, stable vital signs, no apparent adverse anesthesia problems. No complications reported per nursing. LUX VILLARREAL CRNA Jan 21, 2023 12:05
[2023-01-21] MEDS ORDERED: fentaNYL INJECTION 100 MCG/2 ML VIAL IVP ONE (12:15)
--- NOTE | 2023-01-21 12:29 | Diagnostic Imaging Report ---
INDICATION: POST OP PORT PLACEMENT COMPARISON: None FINDINGS: Single frontal view of the chest demonstrates normal heart size and pulmonary vascularity. Bibasilar scarring and/or atelectasis is noted. There is no large effusion or pneumothorax. Osseous structures show no acute abnormalities. Left-sided subclavian Port-A-Cath is noted. IMPRESSION: 1. Probable bibasilar scarring and/or atelectasis. Otherwise, no acute cardiopulmonary process Dictated by: Dictated on workstation # [id number]
--- NOTE | 2023-01-21 14:05 | Diagnostic Imaging Report ---
Indication: Port-A-Cath placement. Intraoperative fluoroscopy views obtained during Port-A-Cath placement in surgery, 2 views are obtained, 13.6 seconds of fluoroscopy time was used. 600.46 mrd exposure Intraoperative views demonstrate Port-A-Cath over the left chest with its catheter tip over the low SVC. This study is otherwise limited. IMPRESSION: Limited intraoperative views demonstrate port placement as above. Dictated by: Dictated on workstation # [id number]
--- NOTE | 2023-01-21 18:43 | OPERATIVE REPORT ---
DATE OF SERVICE: 01/21/2023 ATTENDING PRIMARY NURSE EXECUTIVE: Sofy Keita APRN. PREOPERATIVE DIAGNOSIS: Left breast cancer. POSTOPERATIVE DIAGNOSIS: Left breast cancer. PROCEDURE: Left subclavian Groshong implantable catheter under fluoroscopy. SURGEON: Faye Ledesma M.D. CERTIFICATION TECHNICIAN: Antione De APRN ANESTHESIA: Monitored anesthesia care with local. ESTIMATED BLOOD LOSS: Minimal. FINDINGS: Left breast cancer. DISPOSITION: The patient tolerated the procedure well. INDICATIONS: The patient is a 67-year-old female known to us. We had done a colonoscopy on her in 07/2021. She underwent her yearly mammogram and a lesion was identified, which was suspicious of the left breast. She then underwent ultrasound-guided biopsy, which was consistent with an intermediate grade invasive ductal cancer, which was ER/TN positive, however, also HER2/volodymyr positive. She was seen by oncology and due to the HER2/volodymyr positivity, the patient did opt for neoadjuvant chemotherapy and will require a Groshong implantable catheter. DESCRIPTION OF PROCEDURE: The patient was brought to the operating room, laid supine on the table. After adequate IV pain and sedative medications and monitored anesthesia care, the chest and neck were prepped and draped in standard surgical fashion. Lidocaine 2% with epinephrine was then used to anesthetize the overlying skin in the left subclavian region. The left subclavian vein was then cannulated with drawing of venous blood. A guidewire was then inserted under fluoroscopy. The cannulating needle removed and a skin incision made using a #15 blade. Dilator and sheath were then placed over the guidewire. The dilator and wire were then removed and the Groshong catheter was placed through the sheath until the catheter tip was at the superior vena caval-right atrial junction. The sheath was then removed. The inner wire within the catheter was then removed. The catheter cut down to size and port placed onto the catheter. The chest reservoir was then created by extending the skin incision laterally with a #15 blade. A plane was then created between the subcutaneous fat and the anterior pectoralis fascia using blunt dissection as well as electrocautery with visualization of good hemostasis. The port was then placed into the reservoir and sutured to the anterior pectoralis fascia using interrupted 3-0 Vicryl sutures. The subcutaneous tissue was then reapproximated with the same suture in an interrupted manner and the skin was closed using 4-0 Monocryl running subcuticular sutures. Wound was then cleaned and covered with Dermabond. The port was accessed with a 20 gauge non-coring Gorman needle and venous blood drawn, and heparinized saline pushed in without any resistance. The patient tolerated the procedure well. We will get a post-procedure chest x-ray. Once confirmation of placement, the port may be accessed and used any time. Job ID: [id number] DocumentID: [id number] Dictated Date: 01/21/2023 11:54:05 Fax Machine Repairer Date: 01/21/2023 18:41:00 Dictated By: FAYE LEDESMA MD
== END 2023-01-21 14:35 | disposition home or self-care (01) ==
LOC: SDC 09:50
PROVIDERS: ATTEND Surgery
DX: C50.912 Malignant neoplasm of unspecified site of left female breast (principal); E11.9 Type 2 diabetes mellitus without complications; Z79.84 Long term (current) use of oral hypoglycemic drugs; Z17.0 Estrogen receptor positive status [ER+]; Z87.891 Personal history of nicotine dependence
CPT/HCPCS: 71045; 76000; 82947; 87081

== ENCOUNTER → 2023-01-27 | Outpatient (CLI) | payer MEDICARE ==
[~2023-01-27] MED LIST changes: +ACHD5005 PO
== END ==
LOC: CARD 13:04
PROVIDERS: ATTEND Internal Medicine Hematology & Oncology
DX: C50.912 Malignant neoplasm of unspecified site of left female breast (principal); Z79.899 Other long term (current) drug therapy
CPT/HCPCS: 93306